=== PATIENT | female | born 2000 | race Caucasian/White ===

== ENCOUNTER 2018-09-03 21:14 | Emergency (ER) | payer OTHER ==
[~2018-09-03] VITALS: Ht 164 cm; Wt 64.0 kg
[2018-09-03 21:17] VITALS: BP 115/74; PULSE 71; TEMP 96.9
[2018-09-03 21:32] LABS: COLLECTION METHOD CLEAN CATCH
[2018-09-03 21:42] LABS: MUCOUS Present /lpf; PH 6 (5-8); SQUAMOUS EPITHELIAL None Seen /hpf; URINE APPEARANCE Cloudy; URINE BACTERIA Rare /hpf; URINE BILIRUBIN Negative (NEGATIVE); URINE BLOOD 3+ (NEGATIVE); URINE COLOR Yellow; URINE GLUCOSE Negative (NEGATIVE); URINE KETONE Negative (NEGATIVE); URINE LEUKOCYTE ESTERASE 3+ (NEGATIVE); URINE NITRATE Positive (NEGATIVE); URINE PROTEIN(semi-quant) 1+ (NEGATIVE); URINE UROBILINOGEN Negative (NEGATIVE)
[2018-09-03] MEDS ORDERED: OMNICEF 300MG300 MG PO (21:51)
== END 2018-09-03 22:11 | disposition home or self-care (01) ==
LOC: COL.ER 21:14
PROVIDERS: Physician Assistant
DX: N39.0 Urinary tract infection, site not specified (principal); Z87.440 Personal history of urinary (tract) infections
CPT/HCPCS: J0696